=== PATIENT | female | born 1960 | race Caucasian/White ===

== ENCOUNTER 2021-08-02 18:59 | Inpatient (IN) ==
[2021-08-02] MEDS ORDERED: Ondansetron 4 MG/2 ML VIAL IVP ONE (19:38)
[2021-08-02 20:28] LABS: Basophils # 0.1 K/mcL (0.0-0.2); Basophils % 0.8 %; Eosinophils # 0.1 K/mcL (0.0-0.6); Eosinophils % 1.3 %; Hematocrit 35.9 % (35.3-44.9); Hemoglobin 10.3 g/dL (11.5-15.4); Immature Granulocytes % 0.3 % (0-4); Lymphocytes # 1.2 K/mcL (0.6-4.6); Lymphocytes % 15.6 %; Mean Corpuscular HGB Conc 28.7 g/dL (31.6-35.5); Mean Corpuscular Hemoglobin 25.4 pg (28.0-33.3); Mean Corpuscular Volume 88.4 fL (83.0-100.0); Mean Platelet Volume 10.3 fL (9.4-12.4); Monocytes % 12.8 %; Neutrophils # 5.2 K/mcL (1.6-8.9); Platelet Count 181 K/mcL (140-400); Red Blood Count 4.06 M/mcL (3.82-4.97); Red Cell Distribution Width 21.4 % (11.5-14.5); Segmented Neutrophils % 69.2 %; White Blood Count 7.5 K/mcL (4.3-11.1)
[2021-08-02 20:34] LABS: Hypochromasia Present (Not Present); Platelet Estimate Normal (Normal)
[2021-08-02 20:35] LABS: Bilirubin,Urine Negative (Negative); Blood,Urine Negative (Negative); Clarity,Urine Slightly Cloudy (Clear); Glucose,Urine (UA) Normal (Normal); Ketones,Urine Negative (Negative); Leukocyte Esterase,Urine Negative (Negative); Nitrite,Urine Negative (Negative); PH,Urine 5.5 pH Units (5.0-8.0); Protein,Urine Negative (Neg-Trace)
[2021-08-02 20:47] LABS: Acetaminophen < 10 mcg/mL (10-20); Salicylate < 2.5 mg/dL (15.0-30.0)
[2021-08-02 20:59] LABS: Color,Urine Yellow (Yellow)
[2021-08-02 21:08] LABS: Potassium 3.5 mEq/L (3.5-5.1)
[2021-08-02 21:10] LABS: Albumin 3.4 g/dL (3.5-5.7); Albumin/Globulin Ratio 1.1 (1.1-2.2); Bilirubin,Total 3.4 mg/dL (0.3-1.0); Calcium 8.4 mg/dL (8.6-10.3); Magnesium 1.9 mg/dL (1.6-2.6); Total Protein 6.4 g/dL (6.4-8.9)
[2021-08-02 21:11] LABS: Amphetamine Screen,Urine Negative ng/mL (Cutoff=1000); Barbiturate Screen,Urine Negative ng/mL (Cutoff=200); Benzodiazepines Screen,Urine Negative ng/mL (Cutoff=200); Cannabinoid Screen,Urine Negative ng/mL (Cutoff = 50); Cocaine Screen,Urine Negative ng/mL (Cutoff= 300); Opiate Screen,Urine Negative ng/mL (Cutoff=300); Phencyclidine Screen,Urine Negative ng/mL (Cutoff=25)
[2021-08-02 21:40] LABS: Thyroid Stimulating Hormone 6.079 mcIU/mL (0.340-5.600)
[2021-08-03] MEDS ORDERED: Ipratropium/Albuterol Neb 3 ML IH PRN (02:34)
[2021-08-03] MEDS ORDERED: Ondansetron 4 MG/2 ML VIAL IVP PRN (02:34)
[2021-08-03] MEDS ORDERED: Naloxone 0.4 MG/ML INJ IVP PRN (02:34)
[2021-08-03] MEDS ORDERED: haloperidoL 1 MG TABLET PO PRN (02:49)
[2021-08-03] MEDS ORDERED: ceFAZolin 1,000 MG in Water for inj. (sterile) 10 ML IVP SCH (08:00)
[2021-08-03] MEDS: Lactulose Oral Soln 20 GM/30 ML UDC PO SCH ×3 (08:30→16:28)
[2021-08-03] MEDS: Sennosides/Docusate Sodium TABLET PO SCH ×2 (08:30→13:41)
[2021-08-03] MEDS: Apixaban 5 MG TABLET PO SCH (08:31)
[2021-08-03] MEDS: Cyanocobalamin (B-12) 1,000 MCG TABLET PO SCH (08:33)
[2021-08-03] MEDS: Gabapentin 400 MG CAPSULE PO SCH ×2 (08:33→13:41)
[2021-08-03] MEDS: Metoprolol XL (24 HR) Succ 25 MG TAB.ER.24H PO SCH (08:34)
[2021-08-03] MEDS ORDERED: Furosemide 40 MG TABLET PO SCH (09:00)
[2021-08-03] MEDS: *HR* Methadone 5 MG TABLET PO SCH ×2 (09:10→09:57)
[2021-08-03] MEDS: *HR* Metformin 500 MG TABLET PO SCH ×2 (09:11→16:29)
[2021-08-03] MEDS: Insulin DETEMIR 100 UNIT/ML X5UNITS SUBQ SCH (09:11)
[2021-08-03 16:02] LABS: ABG Base Excess 10 mEq/L (-2 to 3); ABG HCO3 36 mEq/L (21-27); ABG Oxygen Saturation 96 % (95-98); ABG PCO2 60 mmHg (35-45); ABG PH 7.39 pH Units (7.32-7.45); ABG PO2 83 mmHg (85-104); ABG TCO2 38 mEq/L (20-26)
[2021-08-03] MEDS: Furosemide 20 MG/2 ML VIAL IVP SCH (16:28)
[2021-08-03] MEDS: Doxycycline 100 MG in 0.9 % Sodium Chloride Mini Bag 100 ML IVPB SCH (16:28)
[2021-08-03] MEDS ORDERED: *HR* Methadone 5 MG TABLET PO SCH (18:00)
[2021-08-03 18:09] LABS: Hematocrit 34.3 % (35.3-44.9); Hemoglobin 10.1 g/dL (11.5-15.4); Mean Corpuscular HGB Conc 29.4 g/dL (31.6-35.5); Mean Corpuscular Hemoglobin 25.3 pg (28.0-33.3); Mean Platelet Volume 10.3 fL (9.4-12.4); Platelet Count 135 K/mcL (140-400); Red Blood Count 3.99 M/mcL (3.82-4.97); Red Cell Distribution Width 21.6 % (11.5-14.5); White Blood Count 8.1 K/mcL (4.3-11.1)
[2021-08-03 18:41] LABS: Albumin 3.5 g/dL (3.5-5.7); Albumin/Globulin Ratio 1.1 (1.1-2.2); Calcium 8.6 mg/dL (8.6-10.3); Globulin 3.3 g/dL (2.4-3.5); Magnesium 2.1 mg/dL (1.6-2.6); Potassium 3.3 mEq/L (3.5-5.1); Total Protein 6.8 g/dL (6.4-8.9)
[2021-08-03] MEDS ORDERED: ceFAZolin 1,000 MG in 0.9 % Sodium Chloride 100 ML IVPB ONE (19:59)
[2021-08-03 23:14] LABS: ABG Base Excess 10 mEq/L (-2 to 3); ABG HCO3 35 mEq/L (21-27); ABG Oxygen Saturation 96 % (95-98); ABG PCO2 49 mmHg (35-45); ABG PH 7.46 pH Units (7.32-7.45); ABG PO2 77 mmHg (85-104); ABG TCO2 36 mEq/L (20-26)
[2021-08-04] MEDS: Apixaban 5 MG TABLET PO SCH ×3 (04:10→22:35)
[2021-08-04] MEDS: Lactulose Oral Soln 20 GM/30 ML UDC PO SCH ×5 (04:10→22:35)
[2021-08-04] MEDS: acetaZOLAMIDE 250 MG TABLET PO SCH ×3 (04:10→22:35)
[2021-08-04] MEDS: Furosemide 20 MG/2 ML VIAL IVP SCH ×3 (04:10→22:34)
[2021-08-04] MEDS: Insulin DETEMIR 100 UNIT/ML X5UNITS SUBQ SCH ×3 (04:11→22:36)
[2021-08-04] MEDS: Sennosides/Docusate Sodium TABLET PO SCH ×4 (04:11→22:35)
[2021-08-04] MEDS: Doxycycline 100 MG in 0.9 % Sodium Chloride Mini Bag 100 ML IVPB SCH ×2 (04:34→17:43)
[2021-08-04 05:19] LABS: Hematocrit 32.7 % (35.3-44.9); Hemoglobin 9.6 g/dL (11.5-15.4); Mean Corpuscular HGB Conc 29.4 g/dL (31.6-35.5); Mean Corpuscular Hemoglobin 25.3 pg (28.0-33.3); Mean Corpuscular Volume 86.3 fL (83.0-100.0); Mean Platelet Volume 10.8 fL (9.4-12.4); Platelet Count 141 K/mcL (140-400); Red Blood Count 3.79 M/mcL (3.82-4.97)
[2021-08-04 05:35] LABS: Albumin 3.2 g/dL (3.5-5.7); Albumin/Globulin Ratio 1.1 (1.1-2.2); Bilirubin,Total 3.5 mg/dL (0.3-1.0); Calcium 8.3 mg/dL (8.6-10.3); Globulin 2.9 g/dL (2.4-3.5); Magnesium 2.1 mg/dL (1.6-2.6); Potassium 3.5 mEq/L (3.5-5.1); Total Protein 6.1 g/dL (6.4-8.9)
[2021-08-04] MEDS: *HR* Metformin 500 MG TABLET PO SCH ×2 (09:13→17:42)
[2021-08-04] MEDS: Cyanocobalamin (B-12) 1,000 MCG TABLET PO SCH (09:13)
[2021-08-04] MEDS: Metoprolol XL (24 HR) Succ 25 MG TAB.ER.24H PO SCH (09:13)
[2021-08-05 05:04] VITALS: O2SAT 96
[2021-08-05] MEDS: Doxycycline 100 MG in 0.9 % Sodium Chloride Mini Bag 100 ML IVPB SCH (05:32)
[2021-08-05 07:23] VITALS: BP 114/90; PULSE 120; RESP 15; TEMP 98
[2021-08-05 08:31] LABS: Hematocrit 32.7 % (35.3-44.9); Hemoglobin 9.8 g/dL (11.5-15.4); Mean Corpuscular Hemoglobin 25.5 pg (28.0-33.3); Mean Corpuscular Volume 85.2 fL (83.0-100.0); Mean Platelet Volume 10.5 fL (9.4-12.4); Platelet Count 139 K/mcL (140-400); Red Blood Count 3.84 M/mcL (3.82-4.97); Red Cell Distribution Width 22.2 % (11.5-14.5); White Blood Count 7.8 K/mcL (4.3-11.1)
[2021-08-05 08:45] LABS: Albumin 3.1 g/dL (3.5-5.7); Bilirubin,Total 3.6 mg/dL (0.3-1.0); Calcium 8.3 mg/dL (8.6-10.3); Magnesium 2.2 mg/dL (1.6-2.6); Potassium 3.3 mEq/L (3.5-5.1); Total Protein 6.1 g/dL (6.4-8.9)
[2021-08-05] MEDS: Lactulose Oral Soln 20 GM/30 ML UDC PO SCH ×2 (09:38→12:23)
[2021-08-05] MEDS: *HR* Metformin 500 MG TABLET PO SCH (09:40)
[2021-08-05] MEDS: acetaZOLAMIDE 250 MG TABLET PO SCH (09:40)
[2021-08-05] MEDS: Metoprolol XL (24 HR) Succ 25 MG TAB.ER.24H PO SCH (09:40)
[2021-08-05] MEDS: Sennosides/Docusate Sodium TABLET PO SCH ×2 (09:40→17:31)
[2021-08-05] MEDS: Apixaban 5 MG TABLET PO SCH (09:40)
[2021-08-05] MEDS: Insulin DETEMIR 100 UNIT/ML X5UNITS SUBQ SCH (09:41)
[2021-08-05] MEDS: Cyanocobalamin (B-12) 1,000 MCG TABLET PO SCH (09:41)
== END 2021-08-05 17:45 | disposition hospice, home (50) | DRG 432 ==
LOC: INPGRE 18:59 → EMEROOGRE 18:59 → INPGRE 08-03 01:18
PROVIDERS: ADMIT Family Medicine; ATTEND Family Medicine